=== PATIENT | male | born 1975 | race Caucasian/White ===

== ENCOUNTER 2021-08-22 06:56 | Emergency (ER) | payer MEDICAID ==
[~2021-08-22] VITALS: Ht 172.7 cm; Wt 74.3 kg
--- NOTE | 2021-08-22 07:16 | NUR ---
PATIENT REFUSING XRAY AT THIS TIME.
--- NOTE | 2021-08-22 07:38 | NUR ---
pt. agreeable to xray. heading to xray now. wound on lateral aspect of palm, appears to be red and swollen, minimal discharge noted. pt. reports falling onto branch and having to pull branch out of hand. pt. tried super glueing his wound last night, but it came apart today.
[2021-08-22 08:01] VITALS: BP 125/85
--- NOTE | 2021-08-22 08:01 | NUR ---
Ashley vergara in [facility] - 08/22/21 at 0804 by [facility] IS AT BEDSIDE.
[2021-08-22] MEDS ORDERED: clindamycin 150mg capsule PO ONE (08:15)
[2021-08-22] MEDS ORDERED: bacitracin 15gm ointment TP ONE (08:15)
[2021-08-22] MEDS ORDERED: CLIN150C2 PO (08:15)
[2021-08-22] MEDS ORDERED: LIDOcaine 1% 30ml preserv. free vial IJ ONE (08:15)
[2021-08-22] MEDS ORDERED: acetaminophen 325mg tablet PO ONE (08:15)
--- NOTE | 2021-08-22 09:30 | NUR ---
wound irrigated by tech
--- NOTE | 2021-08-22 09:42 | NUR ---
wound culture sent.
== END 2021-08-22 10:31 | disposition home or self-care (01) ==
LOC: ER 06:56
DX: S61.411A Laceration without foreign body of right hand, initial encounter (principal); Z98.890 Other specified postprocedural states; Z72.89 Other problems related to lifestyle; Z88.0 Allergy status to penicillin; Z88.2 Allergy status to sulfonamides; Z79.2 Long term (current) use of antibiotics; W01.0XXA Fall on same level from slipping, tripping and stumbling without subsequent striking against object, initial encounter; Y93.89 Activity, other specified; Y92.89 Other specified places as the place of occurrence of the external cause; Y99.8 Other external cause status
CPT/HCPCS: 12001; 73130; 87070; 99284; J3490